=== PATIENT | female | born 1945 | race Caucasian/White ===

== ENCOUNTER 2016-02-19 12:59 | Observation (INO) | payer OTHER ==
[~2016-02-19] VITALS: Ht 152.4 cm; Wt 69.0 kg
[~2016-02-19 12:59] MED LIST: CIPR500T4 PO; HYDR-3720 PO; LISI20TA11 PO; METR500T PO
[2016-02-19] MEDS ORDERED: ASPIRIN 325 MG TAB PO STA (15:36)
[2016-02-19] MEDS ORDERED: ONDANSETRON 4 MG INJ IV STA (15:36)
[2016-02-19] MEDS ORDERED: BENA20TA48 PO (15:46)
[2016-02-19 16:11] LABS: BASOPHIL # 0.1 10^3/ul (0.0-0.1); BASOPHILS % 0.8 % (0.0-2.0); EOSINOPHILS # 0.2 10^3/ul (0.0-0.5); EOSINOPHILS % 2.4 % (0.0-7.0); HEMATOCRIT 44.1 % (37.0-47.0); LYMPHOCYTES # 3.1 10^3/ul (0.8-2.9); LYMPHOCYTES % 31.3 % (15.0-51.0); MEAN CORPUSCULAR HEMOGLOBIN 24.7 pg (29.0-33.0); MEAN CORPUSCULAR HGB CONC 31.8 g/dl (32.0-37.0); MEAN CORPUSCULAR VOLUME 77.8 fl (82.0-101.0); MEAN PLATELET VOLUME 10.8 fl (7.4-10.4); MONOCYTE # 0.7 10^3/ul (0.3-0.9); MONOCYTES % 7.6 % (0.0-11.0); NEUTROPHIL # 5.7 10^3/ul (1.6-7.5); NEUTROPHILS % 57.9 % (39.0-77.0); PLATELET COUNT 197 10^3/UL (140-440); RED BLOOD COUNT 5.67 10^6/ul (4.20-5.40); UNCORRECTED WBC 9.8 10^3/ul (4.8-10.8); WHITE BLOOD COUNT 9.8 10^3/ul (4.8-10.8)
[2016-02-19 16:15] LABS: CONDITION 1; LH ANALYZER COMMENTS 1
--- NOTE | 2016-02-19 16:19 | RADRPT ---
PROCEDURE: XR Chest. CLINICAL INDICATION: Chest pain TECHNIQUE: Single frontal chest x-ray. COMPARISON: 10/02/2014 FINDINGS: There are low lung volumes with compressive changes and basilar atelectasis. There is prominence of the interstitial markings. The cardiomediastinal silhouette is magnified. There are no pleural ef fusions or pneumothoraces. The osseous structures are intact. IMPRESSION: 1. Low lung volumes with compressive changes and basilar atelectasis. Superimposed pulmonary conge stion is difficult to exclude. RPTAT: BB .Isabella Cisneros MD, Date Time Electronically viewed and signed by .Isabella Cisneros MD, on 02/19/2016 16:19 .O/
[2016-02-19 16:23] LABS: INR 0.94; PROTIME 12.6 Sec (12.2-14.2)
[2016-02-19 16:24] LABS: PARTIAL THROMBOPLASTIN TIME 27.2 Sec (25.0-35.0)
[2016-02-19 16:25] LABS: ALBUMIN 4.4 g/dl (3.3-4.9)
[2016-02-19 16:26] LABS: CHLORIDE 105 mmol/L (97-110); POTASSIUM 4.6 mmol/L (3.5-5.1); SODIUM 145 mmol/L (135-144)
[2016-02-19 16:28] LABS: ANION GAP 18 (8-16); ASPARTATE AMINO TRANSFERASE 88 IU/L (15-46); BILIRUBIN,INDIRECT 0.2 mg/dl (0-1.1); BILIRUBIN,TOTAL 0.2 mg/dl (0.2-1.3); CARBON DIOXIDE 27 mmol/L (21-31); CREATININE 0.61 mg/dl (0.44-1.00)
[2016-02-19 16:29] LABS: ALANINE AMINOTRANSFERASE 76 IU/L (13-69); ALBUMIN/GLOBULIN RATIO 1.02; ALKALINE PHOSPHATASE 109 IU/L (42-121); BLOOD UREA NITROGEN 13 mg/dl (7-20); GLUCOSE 96 mg/dl (70-220); TOTAL PROTEIN 8.7 g/dl (6.1-8.1)
[2016-02-19 16:30] LABS: CALCIUM 9.1 mg/dl (8.4-10.2)
[2016-02-19 16:59] LABS: TROPONIN-I < 0.010 ng/ml (0.00-0.12)
--- NOTE | 2016-02-19 19:59 | ERA ---
ER Documentation Chief Complaint Date/Time DATE: 02/19/16 TIME: 19:56 Chief Complaint pian @ mid chest pain area and nausea started 2 hours ago HPI Patient reports emergency room complaining of chest pain that started this morning. She states the pain has been intermittent and it does radiate into her throat and also down her left arm. She states nothing causes the pain to occur nothing makes the pain go away. She has never experienced this pain before. She denies any shortness of breath, nausea, vomiting, fever, and cough , congestion, sore throat, or otalgia. She denies any chest trauma, swelling, calf pain. She has not traveled anywhere recently. ROS All systems reviewed and are negative except as per history of present illness. Medications Home Meds Reported Medications Benazepril Hcl* (Benazepril Hcl*) 20 Mg Tablet, 20 MG PO DAILY, #30 TAB 02/19/16 Discontinued Reported Medications Lisinopril* (Lisinopril*) 20 Mg Tablet, 20 MG PO DAILY, #30 TAB 08/24/15 Discontinued Scripts Hydrocodone Bit-Acetaminophen* ([place]*) 7.5-325 Tablet, 1 TAB PO Q4H Y for PAIN , #20 TAB Prov:LEKKOS,GISSELLSTOLOS A. DO 08/24/15 Metronidazole* (Flagyl*) 500 Mg Tablet, 500 MG PO TID for 7 Days, TAB Prov:LEKKOS,APOSTOLOS A. DO 08/24/15 Ciprofloxacin Hcl* (Ciprofloxacin Hcl*) 500 Mg Tablet, 500 MG PO BID for 7 Days , TAB Prov:LEKKOS,APOSTOLOS A. DO 08/24/15 Allergies Allergies: Coded Allergies: No Known Drug Allergy (Verified Allergy, Unknown, 02/19/16) PMhx/Soc History of Surgery: Yes (HERNIA REPAIR, C SECTION, ) Anesthesia Reaction: No Hx Neurological Disorder: No Hx Respiratory Disorders: No Hx Cardiac Disorders: Yes (HTN, HYPERLIPIDEMIA) Hx Psychiatric Problems: No Hx Miscellaneous Medical Probl: No (BORDERLINE DM 08-29) Hx Alcohol Use: No Hx Substance Use: No Hx Tobacco Use: No Smoking Status: Never smoker FmHx Family History: diabetes Physical Exam Vitals Vital Signs Date Time Temp Pulse Resp B/P Pulse Ox O2 Delivery O2 Flow Rate FiO2 02/19/16 17:57 98.3 95 19 125/70 94 1/5/17 16:35 Nasal Cannula 2 02/19/16 13:04 98.3 97 19 122/86 94 Physical Exam Const: Well-developed well-nourished female sitting on the bed in no acute distress Head: Atraumatic normocephalic Eyes: Normal Conjunctiva ENT: Normal External Ears, Nose and Mouth. Neck: Full range of motion..~ No meningismus. Resp: Clear to auscultation bilaterally, no chest wall tenderness to palpation Cardio: Regular rate and rhythm, no murmurs Abd: Soft, non tender, non distended. Normal bowel sounds Skin: No petechiae or rashes Back: No midline or flank tenderness Ext: No cyanosis, or edema, no pain or calf tenderness to palpation negative Homans sign Neur: Awake and alert Psych: Normal Mood and Affect Result Diagram: 02/19/16 1550 02/19/16 1550 Results 24 hrs Laboratory Tests Test 02/19/16 15:50 Activated Partial Thromboplast Time 27.2Sec Alanine Aminotransferase (ALT/SGPT) 76IU/L Albumin 4.4g/dl Albumin/Globulin Ratio 1.02 Alkaline Phosphatase 109IU/L Anion Gap 18 Aspartate Amino Transf (AST/SGOT) 88IU/L Basophils # 0.110^3/ul Basophils % 0.8% Blood Morphology Comment Blood Urea Nitrogen 13mg/dl Calcium Level 9.1mg/dl Carbon Dioxide Level 27mmol/L Chloride Level 105mmol/L Creatinine 0.61mg/dl Direct Bilirubin 0.00mg/dl Eosinophils # 0.210^3/ul Eosinophils % 2.4% Globulin 4.30g/dl Glucose Level 96mg/dl Hematocrit 44.1% Hemoglobin 14.0g/dl INR International Normalized Ratio 0.94 Indirect Bilirubin 0.2mg/dl Lymphocytes # 3.110^3/ul Lymphocytes % 31.3% Mean Corpuscular Hemoglobin 24.7pg Mean Corpuscular Hemoglobin Concent 31.8g/dl Mean Corpuscular Volume 77.8fl Mean Platelet Volume 10.8fl Monocytes # 0.710^3/ul Monocytes % 7.6% Neutrophils # 5.710^3/ul Neutrophils % 57.9% Nucleated Red Blood Cells # 0.010^3/ul Nucleated Red Blood Cells % 0.0/100WBC Platelet Count 90807^3/UL Potassium Level 4.6mmol/L Prothrombin Time 12.6Sec Prothrombin Time Ratio 1.0 Red Blood Count 5.6710^6/ul Red Cell Distribution Width 16.0% Sodium Level 145mmol/L Total Bilirubin 0.2mg/dl Total Protein 8.7g/dl Troponin I < 0.010ng/ml White Blood Count 9.810^3/ul Current Medications Medications (Trade) Dose Ordered Sig/Agustin Route PRN Reason Start Time Stop Time Status Last Admin Dose Admin Aspirin (Aspirin) 325 mg ONCE STAT PO 02/19/16 15:36 02/19/16 15:38 DC 02/19/16 16:02 Ondansetron HCl (Zofran Inj) 4 mg ONCE STAT IV 02/19/16 15:36 02/19/16 15:38 DC 02/19/16 16:02 Procedures/MDM EKG: Rate/Rhythm: Normal Sinus Rhythm at a rate of 100 bpm QRS, ST, T-waves: No changes consistent w/ acute ischemia Impression: No evidence of ischemia or arrhythmia Departure Diagnosis: Primary Impression: Acute chest pain Additional Impressions: Diabetes Qualified Code: E11.9 - Type 2 diabetes mellitus without complication, unspecified long term care phlebotomist insulin use status Hypertension Qualified Code: I10 - Essential hypertension Condition: ASHUTOSH Jose Feb 19, 2016 19:59
[2016-02-19] MEDS ORDERED: ONDANSETRON 4 MG INJ IV PRN ×2 (20:30→22:00)
[2016-02-19] MEDS ORDERED: ACETAMINOPHEN 325 MG TAB PO PRN ×2 (20:30→22:00)
[2016-02-19 21:51] LABS: CREATINE KINASE 114 IU/L (23-200)
[2016-02-19 21:59] LABS: CK-MB 1.22 ng/ml (0.0-2.4)
[2016-02-19] MEDS ORDERED: ZOLPIDEM 5 MG TAB PO PRN (22:00)
[2016-02-19] MEDS ORDERED: NACL 0.9% 3 ML SYG IV SCH (22:00)
[2016-02-19] MEDS ORDERED: HYDROCODONE/APAP (5/325) TAB PO PRN (22:00)
[2016-02-19] MEDS ORDERED: NITROGLYCERIN (SL) 0.4 MG TAB SL PRN (22:00)
[2016-02-19] MEDS ORDERED: morphine 2 MG INJ IV PRN (22:00)
[2016-02-19 22:09] LABS: TROPONIN-I < 0.010 ng/ml (0.00-0.12)
[2016-02-20] VITALS (7 sets, daily range): BP systolic 99–112; BP diastolic 59–63; PULSE 84–100; RESP 17–18; TEMP 98.5; Ht 152.4 cm; Wt 69.0 kg
[2016-02-20 04:07] LABS: POTASSIUM 4.7 mmol/L (3.5-5.1)
[2016-02-20 04:10] LABS: CALCIUM 8.8 mg/dl (8.4-10.2); CREATININE 0.76 mg/dl (0.44-1.00)
[2016-02-20 04:11] LABS: CHOL/HDL RATIO 4.3 RATIO; CREATINE KINASE 93 IU/L (23-200); MAGNESIUM 2.2 mg/dl (1.7-2.5)
[2016-02-20 04:22] LABS: BASOPHIL # 0.1 10^3/ul (0.0-0.1); BASOPHILS % 0.7 % (0.0-2.0); EOSINOPHILS # 0.3 10^3/ul (0.0-0.5); HEMATOCRIT 42.8 % (37.0-47.0); HEMOGLOBIN 13.7 g/dl (12.0-16.0); LYMPHOCYTES # 2.9 10^3/ul (0.8-2.9); LYMPHOCYTES % 37.3 % (15.0-51.0); MEAN CORPUSCULAR HEMOGLOBIN 24.7 pg (29.0-33.0); MEAN CORPUSCULAR VOLUME 77.1 fl (82.0-101.0); MEAN PLATELET VOLUME 10.3 fl (7.4-10.4); MONOCYTE # 0.9 10^3/ul (0.3-0.9); NEUTROPHIL # 3.6 10^3/ul (1.6-7.5); PLATELET COUNT 191 10^3/UL (140-440); RED BLOOD COUNT 5.56 10^6/ul (4.20-5.40); RED CELL DISTRIBUTION WIDTH 16.5 % (11.5-14.5); UNCORRECTED WBC 7.9 10^3/ul (4.8-10.8); WHITE BLOOD COUNT 7.9 10^3/ul (4.8-10.8)
[2016-02-20 04:26] LABS: TROPONIN-I < 0.010 ng/ml (0.00-0.12)
[2016-02-20 04:49] LABS: CONDITION 1; LH ANALYZER COMMENTS 1
[2016-02-20 04:52] LABS: T3 UPTAKE 29.9 % (23.5-40.5)
--- NOTE | 2016-02-20 08:59 | HP ---
DATE OF ADMISSION: 02/19/2016 Time 9:15 p.m. CHIEF COMPLAINT: Chest pain. HISTORY OF PRESENT ILLNESS: The patient is a 70-year-old female with history of hypertension who pr esents with chest pain that began this afternoon. She states that the pain is now gone. She states t hat the pain was mostly in her chest and she describes it as an electrical shock feeling. She denies any pressure-like sensation. She denies any radiation of the pain. She states that she was sittin g when the pain initiated. The patient denies any shortness of breath. She denies any cardiac hist ory, has no other complaints at this time. PAST MEDICAL HISTORY: Hypertension. PAST SURGICAL HISTORY: A left inguinal hernia repair, , EGD and colonoscopy. FAMILY HISTORY: Coronary artery disease in the mother. SOCIAL HISTORY: Denies any alcohol, tobacco, or drug abuse. HOME MEDICATIONS: Benazepril. ALLERGIES: NO KNOWN DRUG ALLERGIES. REVIEW OF SYSTEMS: A 12-point review of systems negative except for that as stated in the HPI. PHYSICAL EXAMINATION: VITAL SIGNS: Temperature is 98.3, pulse 71, respiratory rate 16, BP is 113/80, saturation 99% on ro om air. GENERAL: No acute distress, alert and oriented. HEENT: Normocephalic, atraumatic. LUNGS: Clear to auscultation. CARDIOVASCULAR: Regular rate and rhythm. ABDOMEN: Nondistended, nontender, soft. EXTREMITIES: No clubbing, cyanosis, or edema. LABORATORIES: White count 9.8, hemoglobin is 14.0, platelets at 197. Chemistry within normal limit s except for sodium slightly elevated at 145, anion gap is 18. AST 88, ALT is 76. INR is 0.94. DIAGNOSTICS: Chest x-ray shows low lung volumes with compressive changes and basilar atelectasis. Superimposed pulmonary congestion is difficult to exclude. EKG shows normal sinus rhythm. No evide nce of ischemia or arrhythmia. ASSESSMENT AND PLAN: 1. Atypical chest pain. The patient states that the pain is more electric in nature. She denies an y pressure pain. We will rule out ACS by trending troponins. Currently there has no evidence ACS or troponin and the EKG is negative. We will check 2 more troponins and a 2D echo. 2. Hypertension. Continue home medications. 3. Prophylaxis. Ambulation. Dictated By: KULWINDER MIRANDA/NTS Conf#: [id number] DID#: [id number]
[2016-02-20] MEDS ORDERED: BENAZEPRIL 20 MG TAB PO SCH (09:00)
--- NOTE | 2016-02-20 11:53 | RADRPT ---
Echocardiogram Report Patient Name: EVAN SOTO Gender: Female Date: 1945 Study Date: 20-Feb-2016 Records Technician: Jann Can RDCS Location: [facility] Ref. Physician: KULWINDER SPICER Quality: Good Procedures: Transthoracic echocardiogram with complete 2D, M-Mode, and doppler examination. Indications: Chest Pain. 2D/M Mode Doppler Measurement Value Normal Ranges Measurement Value Normal Ranges LVIDd 2D 3.9 3.5 - 5.6 cm AV Peak Allen 1.5 m/sec LVIDs 2D 2.0 2.1 - 4.1 cm AV Peak PG 8.9 mmHg LVPWd 2D 0.9 0.6 - 1.1 cm LVOT Peak Allen 1.2 m/sec IVSd 2D 1.0 0.6 - 1.1 cm LVOT Peak PG 5.3 mmHg AoR Diam 2D 2.5 2.0 - 3.7 cm MV E Peak Allen 0.6 m/sec EDV 2D 67.4 cm3 MV A Peak Allen 0.9 m/sec ESV 2D 8.0 cm3 MV E/A 0.7 LA Dimen 2D 2.9 2.3 - 4.0 cm MV Decel Time 130 msec MV Decel Allen 5 MV E/A 0.7 TR Peak Allen 2.5 m/sec TR Peak PG 25.7 mmHg RVSP 29.0 mmHg Findings Left Ventricle: Normal left ventricular systolic function. Normal left ventricular cavity size. Normal left ventricular wall thickness. Ejection fraction is visually estimated at 60 %. Tissue Doppler/Mitral Doppler indices are consistent with impaired relaxation (Stage I diastolic dysfunction). Right Ventricle: Normal right ventricular size. Normal right ventricular systolic function. Left Atrium: Upper limit of normal left atrial size. Right Atrium: The right atrium is normal in size. Mitral Valve: Normal appearance of the mitral valve. Mild mitral annular calcification. Trace mitral regurgitation. Aortic Valve: Normal appearance of the aortic valve. No significant aortic stenosis or insufficiency. Tricuspid Valve: Normal appearance of the tricuspid valve. Estimated peak PA systolic pressure 29 mmHg. There is mild tricuspid regurgitation. Pericardium: Normal pericardium with no significant pericardial effusion. Aorta: Normal aortic root. IVC: Normal size and normal respiratory collapse consistent with normal right atrial pressure. Conclusions 1.Normal left ventricular systolic function. Normal left ventricular cavity size. Normal left ventricular wall thickness. Ejection fraction is visually estimated at 60 %. Tissue Doppler/Mitral Doppler indices are consistent with impaired relaxation (Stage I diastolic dysfunction). 2.No significant valvular stenosis or regurgitation seen. 3.Estimated peak PA systolic pressure 29 mmHg based on RA pressure of 3mmHg. Electronically Signed By: Luis Telles 20-Feb-2016 11:52:56 -0800 Patient Name: EVAN SOTO Study Date: 20-Feb-2016 [id number]
--- NOTE | 2016-02-20 14:26 | PDOCDIS ---
Discharge Instructions CONDITION Patient Condition: Stable HOME CARE INSTRUCTIONS: Diet Instructions: Low Fat /Cholesterol ACTIVITY: Activity Restrictions: Slowly Increase Activity FOLLOW UP/APPOINTMENTS Appointments Follow-up with primary care Doctor OTHER ORDERS: Other Orders: call 911 or go to the nearest ER if you develop chest pain, shortness of breath , palpitations, fever, chills, lightheadedness CATIE QUIROZ MD Feb 20, 2016 14:26
[2016-02-20] MEDS ORDERED: ASPI-664 PO (14:27)
[2016-02-20] MEDS ORDERED: BENA20TA48 PO ×2 (14:27→14:33)
--- NOTE | 2016-02-20 15:15 | DS ---
DATE OF ADMISSION: 02/19/2016 DATE OF DISCHARGE: 02/20/2016 DISCHARGE DIAGNOSES: 1. Chest pain. Acute coronary syndrome was ruled out. 2. History of hypertension. 3. Prediabetes with an A1c of 6.3. HOSPITAL COURSE: The patient is a 70-year-old female with history of hypertension who presented to the emergency department with chest pain that started a few hours prior to presentation. She descri bes chest pain as an electrical shock sensation. The patient was admitted to telemetry unit. EKG w ith no ST-T wave abnormalities. She had 3 troponins and all of them were negative. She had a 2D ec ho which showed only stage I diastolic dysfunction, otherwise with a preserved ejection fraction of 60% and there was no valvular stenosis or regurgitation. Patient will now be discharged in stable c ondition to follow up with her primary care doctor. Of note, the patient's blood pressure has been within normal limits except one time where it was 89/58 and the other time, it was 99/61. CONDITION ON DISCHARGE: Stable. MEDICATIONS UPON DISCHARGE: Patient is to continue: 1. Benazepril 20 mg daily. 2. She has been given a prescription for aspirin 81 mg daily. FOLLOWUP INSTRUCTIONS: The patient is to follow up with her primary care doctor. She has been told about her hemoglobin A1c is 6.3 and she needs diet and exercise. She is to go to the nearest emerg ency department if she develops any chest pain, shortness of breath, fever, chills, palpitations or lightheadedness. Total time spent with this discharge summary is about 35 minutes. Dictated By: CATIE FERNANDES/CHERYL Conf#: [id number] DID#: [id number]
[2016-02-21] MEDS ORDERED: ASPIRIN 81 MG TAB PO SCH (09:00)
== END 2016-02-20 16:15 | disposition home or self-care (01) ==
LOC: E/R 12:59 → TEL 20:12
PROVIDERS: ADMIT Internal Medicine; ATTEND Internal Medicine
DX: R07.89 Other chest pain (principal); I10 Essential (primary) hypertension; E11.9 Type 2 diabetes mellitus without complications
CPT/HCPCS: 71010; 80048; 80053; 80061; 82550; 82553; 83036; 83735; 84436; 84479; 84484; 85025; 85610; 85730; 93005; 93306; G0378; J2405; 99217

== ENCOUNTER 2017-04-07 14:41 | Emergency (ER) | END 2017-04-07 21:40 | disposition home or self-care (01) ==

== ENCOUNTER 2017-05-03 18:54 | Emergency (ER) | END 2017-05-04 01:57 | disposition home or self-care (01) ==

== ENCOUNTER 2017-07-12 19:06 | Emergency (ER) | END 2017-07-12 21:50 | disposition home or self-care (01) ==